=== PATIENT | female | born 1935 | race Caucasian/White ===

== ENCOUNTER 2017-08-22 00:30 | Inpatient (IN) | payer MEDICARE, BC ==
[~2017-08-22] VITALS: Ht 162.6 cm; Wt 90.8 kg
[~2017-08-22 00:30] MED LIST: ASPIRIN 81M81 MG/TA2 PO; FUROSEMIDE40 MG/5 ML PO; GLUCOTROL10 MG PO; LANTUS100 U/ML SQ
[2017-08-22] MEDS ORDERED: ALIGN PO ×2 (00:58→07:45)
[2017-08-22] MEDS ORDERED: TYLENOL 325MG325 MG PO ×2 (01:13→01:14)
[2017-08-22] MEDS ORDERED: CLARITIN 1010 MG/TAB PO (01:14)
[2017-08-22] MEDS ORDERED: NEURONTIN100 MG/CAP PO (01:15)
[2017-08-22] MEDS ORDERED: LASIX 20MG TABL20 MG PO (01:17)
[2017-08-22] MEDS ORDERED: ZESTRIL 10MG10 MG PO (01:19)
[2017-08-22] MEDS ORDERED: EFFEXOR-XR150 MG PO (01:23)
[2017-08-22 02:21] VITALS: BP 150/56; PULSE 101; TEMP 98.2
[2017-08-22] MEDS ORDERED: LASIX 40MG TABL40 MG PO (07:43)
[2017-08-22 07:44] LABS: BASO % 0.4 % (0.0-2.0); EOS # 0.1 (0.0-0.7); EOS % 1.1 % (0-4.0); GRAN % 66.3 % (42.2-75.2); LYMPH # 2.5 (1.2-3.4); LYMPH % 23.4 % (20.0-51.0); MEAN CELL VOLUME 98 fl (80.0-100.0); MEAN CORPUSCULAR HGB CONC 32 g/dl (33.0-37.0); MEAN PLATELET VOLUME 10.9 fl (7.4-10.4); MONO # 0.9 (0.1-0.6); MONO % 8.3 % (1.7-9.3); PLATELET COUNT 240 K/mm3 (130-400); RED BLOOD COUNT 3.28 M/mm3 (4.10-5.30); WHITE BLOOD COUNT 10.6 K/mm3 (4.8-10.8)
[2017-08-22] MEDS ORDERED: ARGININE (07:44)
[2017-08-22 07:45] LABS: HEMATOCRIT 32.2 % (37.0-47.0); HEMOGLOBIN 10.4 g/dl (12.5-16.0); MEAN CORPUSCULAR HEMOGLOBIN 32 pg (27.0-31.0)
[2017-08-22] MEDS ORDERED: TOUJEO300 U/ML SQ (07:45)
[2017-08-22 07:52] LABS: ADJUSTED CALCIUM 8.8 mg/dL (8.4-10.2); ALBUMIN 4.3 gm/dL (3.5-5.0); BILIRUBIN,TOTAL 0.5 mg/dL (0.0-1.0); CREATININE, serum 1.78 mg/dL (0.52-1.25); TOTAL PROTEIN 7.5 gm/dL (6.4-8.2)
[2017-08-22 07:56] LABS: INR 1.1 (0.8-3.0); PROTHROMBIN TIME 11.8 SECONDS (9.7-12.8)
[2017-08-22 07:59] LABS: PRE ALBUMIN 23.9 mg/dL (17.6-36.0)
[2017-08-22 08:00] LABS: POTASSIUM 5.9 mmol/L (3.4-5.0)
[2017-08-22] MEDS ORDERED: NOVOLOG 100U100 U/M1 SQ (08:00)
[2017-08-22] MEDS ORDERED: TIMOLOL MALEATE5 M1 OP (08:02)
[2017-08-22 09:07] VITALS: BP 133/51; PULSE 103; TEMP 98.5
[2017-08-22 14:04] VITALS: BP 142/48; PULSE 103; TEMP 98.8
[2017-08-22 18:04] VITALS: BP 151/58; PULSE 109; TEMP 99.1
[2017-08-22 22:00] VITALS: BP 152/51; PULSE 102; TEMP 99.9
[2017-08-23] VITALS (14 sets, daily range): BP systolic 138–175; BP diastolic 53–82; PULSE 101–115; TEMP 98.2–99.3
[2017-08-23 07:12] LABS: ALBUMIN 3.8 gm/dL (3.5-5.0); CALCIUM 9.5 mg/dL (8.4-10.2); CREATININE, serum 1.68 mg/dL (0.52-1.25); PHOSPHOROUS 3.7 mg/dL (2.5-4.5); POTASSIUM 5.3 mmol/L (3.4-5.0)
[2017-08-24] VITALS (7 sets, daily range): BP systolic 126–149; BP diastolic 48–67; PULSE 96–106; TEMP 98.7–101
[2017-08-24 06:31] LABS: BASO % 0.4 % (0.0-2.0); EOS # 0.2 (0.0-0.7); EOS % 1.5 % (0-4.0); GRAN # 6.8 (1.4-6.5); GRAN % 67.5 % (42.2-75.2); MEAN CELL VOLUME 96 fl (80.0-100.0); MEAN CORPUSCULAR HGB CONC 32 g/dl (33.0-37.0); MEAN PLATELET VOLUME 10.3 fl (7.4-10.4); PLATELET COUNT 175 K/mm3 (130-400); RED BLOOD COUNT 2.99 M/mm3 (4.10-5.30)
[2017-08-24 06:39] LABS: HEMATOCRIT 28.7 % (37.0-47.0); HEMOGLOBIN 9.2 g/dl (12.5-16.0); MEAN CORPUSCULAR HEMOGLOBIN 31 pg (27.0-31.0)
[2017-08-24 06:44] LABS: ALBUMIN 3.3 gm/dL (3.5-5.0); CALCIUM 8.6 mg/dL (8.4-10.2); CREATININE, serum 1.62 mg/dL (0.52-1.25); PHOSPHOROUS 3.2 mg/dL (2.5-4.5); POTASSIUM 4.5 mmol/L (3.4-5.0)
[2017-08-24 06:49] LABS: CALCIUM 8.6 mg/dL (8.4-10.2); CREATININE, serum 1.6 mg/dL (0.52-1.25); MAGNESIUM 1.9 mg/dL (1.6-2.3); POTASSIUM 4.4 mmol/L (3.4-5.0)
[2017-08-24 10:38] LABS: MUCOUS Present /lpf; PH 5 (5-8); SQUAMOUS EPITHELIAL 0-2 /hpf; URINE APPEARANCE Hazy; URINE BACTERIA Rare /hpf; URINE BILIRUBIN Negative (NEGATIVE); URINE BLOOD 1+ (NEGATIVE); URINE COLOR Yellow; URINE GLUCOSE 2+ (NEGATIVE); URINE KETONE Negative (NEGATIVE); URINE LEUKOCYTE ESTERASE 2+ (NEGATIVE); URINE PROTEIN(semi-quant) 1+ (NEGATIVE); URINE UROBILINOGEN Negative (NEGATIVE); URINE WBC 20-50 /hpf
[2017-08-24 10:40] LABS: COLLECTION METHOD CLEAN CATCH
[2017-08-25 02:14] VITALS: BP 144/57; PULSE 92; TEMP 98.7
[2017-08-25 04:34] VITALS: BP 138/55; PULSE 89; TEMP 99.1
[2017-08-25 07:24] LABS: ADD PATHOLOGY DIFF REVIEW NO
[2017-08-25 07:49] LABS: ALBUMIN 3.2 gm/dL (3.5-5.0); CALCIUM 8.8 mg/dL (8.4-10.2); CREATININE, serum 1.72 mg/dL (0.52-1.25); PHOSPHOROUS 3.2 mg/dL (2.5-4.5); POTASSIUM 4.2 mmol/L (3.4-5.0)
[2017-08-25 07:56] LABS: MEAN CELL VOLUME 98 fl (80.0-100.0); MEAN CORPUSCULAR HGB CONC 32 g/dl (33.0-37.0); MEAN PLATELET VOLUME 10.9 fl (7.4-10.4); PLATELET COUNT 195 K/mm3 (130-400); RED BLOOD COUNT 2.79 M/mm3 (4.10-5.30); WHITE BLOOD COUNT 10.4 K/mm3 (4.8-10.8)
[2017-08-25 08:08] LABS: HEMATOCRIT 27.2 % (37.0-47.0); HEMOGLOBIN 8.7 g/dl (12.5-16.0); MEAN CORPUSCULAR HEMOGLOBIN 31 pg (27.0-31.0)
[2017-08-25 09:22] VITALS: BP 139/33; PULSE 89; TEMP 97.9
[2017-08-25 10:08] LABS: BAND 15 % (0-10); EOSINOPHIL 3 % (0-4); LYMPHOCYTE 20 % (20.0-51.0); NEUTROPHILS 58 % (42.0-75.2); TOTAL CELLS COUNTED 100
[2017-08-25 10:09] LABS: HYPOCHROMIA 2+; PLATELET ESTIMATE NORMAL (NORMAL)
[2017-08-25 14:01] VITALS: BP 119/54; PULSE 88; TEMP 99.2
[2017-08-25 16:43] VITALS: BP 157/71; PULSE 95; TEMP 99.3
[2017-08-25 22:50] VITALS: BP 123/48; PULSE 96; TEMP 100.3
[2017-08-26] VITALS (7 sets, daily range): BP systolic 99–159; BP diastolic 36–74; PULSE 66–100; TEMP 98.3–100.7
[2017-08-26 06:18] LABS: BASO % 0.4 % (0.0-2.0); EOS # 0.8 (0.0-0.7); EOS % 7.5 % (0-4.0); GRAN # 6.9 (1.4-6.5); GRAN % 64.1 % (42.2-75.2); LYMPH # 2.1 (1.2-3.4); LYMPH % 19.8 % (20.0-51.0); MEAN CELL VOLUME 97 fl (80.0-100.0); MEAN CORPUSCULAR HGB CONC 32 g/dl (33.0-37.0); MEAN PLATELET VOLUME 10.3 fl (7.4-10.4); MONO # 0.8 (0.1-0.6); MONO % 7.5 % (1.7-9.3); PLATELET COUNT 240 K/mm3 (130-400); RED BLOOD COUNT 2.91 M/mm3 (4.10-5.30); WHITE BLOOD COUNT 10.8 K/mm3 (4.8-10.8)
[2017-08-26 06:33] LABS: ALBUMIN 3.3 gm/dL (3.5-5.0); CALCIUM 8.9 mg/dL (8.4-10.2); CREATININE, serum 1.71 mg/dL (0.52-1.25); PHOSPHOROUS 3.6 mg/dL (2.5-4.5); POTASSIUM 4.1 mmol/L (3.4-5.0)
[2017-08-26 06:40] LABS: HEMATOCRIT 28.1 % (37.0-47.0); HEMOGLOBIN 9.1 g/dl (12.5-16.0); MEAN CORPUSCULAR HEMOGLOBIN 31 pg (27.0-31.0)
[2017-08-27 06:00] VITALS: BP 125/66; PULSE 92; TEMP 98.3
[2017-08-27 07:24] LABS: ALBUMIN 3.4 gm/dL (3.5-5.0); CREATININE, serum 1.6 mg/dL (0.52-1.25); PHOSPHOROUS 4.5 mg/dL (2.5-4.5); POTASSIUM 3.9 mmol/L (3.4-5.0)
[2017-08-27 09:52] VITALS: BP 142/50; PULSE 95; TEMP 98.1
[2017-08-27 14:13] VITALS: BP 134/50; PULSE 97; TEMP 98.8
[2017-08-27 17:34] VITALS: BP 135/50; PULSE 92; TEMP 98.1
[2017-08-27 22:31] VITALS: BP 121/46; PULSE 89; TEMP 97.9
[2017-08-28 02:25] VITALS: BP 136/49; PULSE 86; TEMP 98.7
[2017-08-28 05:33] VITALS: BP 142/66; PULSE 90; TEMP 98
[2017-08-28 07:37] LABS: CREATININE, serum 1.92 mg/dL (0.52-1.25); MAGNESIUM 2.2 mg/dL (1.6-2.3); POTASSIUM 3.7 mmol/L (3.4-5.0)
[2017-08-28 07:38] LABS: ALBUMIN 3.3 gm/dL (3.5-5.0); CREATININE, serum 1.9 mg/dL (0.52-1.25); PHOSPHOROUS 5.1 mg/dL (2.5-4.5); POTASSIUM 3.7 mmol/L (3.4-5.0)
[2017-08-28] MEDS ORDERED: GOOD NEIGH1200 MG/15 PO (08:22)
[2017-08-28] MEDS ORDERED: ASPI325T6 PO (08:22)
[2017-08-28] MEDS ORDERED: FERROUS SU325 MG/TAB PO (08:22)
[2017-08-28] MEDS ORDERED: SENOKOT S 50 MG1 TAB PO (08:22)
[2017-08-28] MEDS ORDERED: NORCO 325 MG-51 TAB PO (08:28)
[2017-08-28] MEDS ORDERED: OMNICEF 300MG300 MG PO (09:15)
[2017-08-28 09:33] VITALS: BP 97/50; PULSE 93; TEMP 98
[2017-08-28 12:49] VITALS: BP 97/50; PULSE 93; TEMP 98
[2017-08-28 13:20] VITALS: BP 135/54; PULSE 87; TEMP 98.3
== END 2017-08-28 14:15 | DRG 481 ==
LOC: SURG 00:30
PROVIDERS: Internal Medicine; Internal Medicine Nephrology; Nurse Practitioner; Orthopaedic Surgery; Physician Assistant
PROC: 0QS606Z Reposition Right Upper Femur with Intramedullary Internal Fixation Device, Open Approach (ICD-10-PCS; principal; 2017-08-23 12:30)
DX: S72.141A Displaced intertrochanteric fracture of right femur, initial encounter for closed fracture (principal); I13.0 Hypertensive heart and chronic kidney disease with heart failure and stage 1 through stage 4 chronic kidney disease, or unspecified chronic kidney disease; I50.32 Chronic diastolic (congestive) heart failure; N39.0 Urinary tract infection, site not specified; W18.30XA Fall on same level, unspecified, initial encounter; E11.42 Type 2 diabetes mellitus with diabetic polyneuropathy; E87.5 Hyperkalemia; E11.22 Type 2 diabetes mellitus with diabetic chronic kidney disease; N18.9 Chronic kidney disease, unspecified; I27.22 Pulmonary hypertension due to left heart disease; I08.0 Rheumatic disorders of both mitral and aortic valves; D50.0 Iron deficiency anemia secondary to blood loss (chronic); Z79.4 Long term (current) use of insulin; Z87.891 Personal history of nicotine dependence
CPT/HCPCS: 99223-AI; 99232-AI; 99233-AI; 99239; A9284; C1713; J0690; J0696; J1815; J2250; J2270; J2704; J3010; J7030